=== PATIENT | female | born 1965 | race African-American/Black ===

== ENCOUNTER 2018-06-02 13:02 | Emergency (ER) | payer OTHER ==
[~2018-06-02] VITALS: Ht 162.6 cm; Wt 81.6 kg
[2018-06-02 13:16] VITALS: BP 119/69
[2018-06-02] MEDS ORDERED: TYLENOL EXTRA500 MG ORAL (13:34)
--- NOTE | 2018-06-02 13:34 | Emergency Room Report ---
History of Present Illness General Chief Complaint: Sore Throat Source: Patient Present Illness HPI 53-year-old female patient presents ER complaining of sore throat intermittently for the past month. Reports that it hurts to swallow. Reports no cough or vomiting. Reports that she was previously seen by her doctor prescribed antibiotics which briefly relieved her symptoms have not completely get rid of them. Denies other acute symptoms. Denies chest pain, shortness breath, other acute symptoms. Denies cough, fever. Allergies: Coded Allergies: MORPHINE (Verified Allergy, Unknown, 06/02/18) Patient History Past Medical History: see triage record Last Menstrual Period: NA Now: No Reviewed Nursing Documentation: PMH: Agreed; PSxH: Agreed Nursing Documentation-PMH Past Medical History: No History, Except For Review of Systems All Other Systems: negative except mentioned in HPI Physical Exam Vital Signs Date Time Temp Pulse Resp B/P (MAP) Pulse Ox O2 Delivery O2 Flow Rate FiO2 06/02/18 13:08 97.9 67 20 119/69 99 Room Air 97.9 Sp02 EP Interpretation: reviewed, normal General Appearance: well appearing, no apparent distress, alert, GCS 15, non- toxic Head: normocephalic, atraumatic Eyes: bilateral eye normal inspection, bilateral eye PERRL ENT: hearing grossly normal, normal pharynx, no angioedema, normal voice, TMs + canals normal, uvula midline, moist mucus membranes, other - uvula midline, no swelling, erythema or exudates Neck: full range of motion, thyroid normal Respiratory: lungs clear, normal breath sounds, no rhonchi, no respiratory distress, no accessory muscle use, no wheezing, speaking full sentences Cardiovascular #1: regular rate, rhythm, no edema Musculoskeletal: back normal, digits/nails normal, gait/station normal, normal range of motion, non-tender Neurologic: alert, oriented x3, responsive, motor strength/tone normal, sensory intact Psychiatric: mood/affect normal Skin: no rash Lymphatic: no adenopathy Medical Decision Making PA Attestation Dr. Crocker is my supervising Physician whom patient management has been discussed with. Diagnostic Impression: Primary Impression: Sore throat ER Course Pt presents to ED c/o sore throat. DDX considered but are not limited to pharyngitis, laryngitis, URI, peritonsillar abscess, tonsillitis. Low suspicion for peritonsillar abscess, no neck stiffness, no hot potato voice , no stridor. Does not require imaging at this time. VITAL SIGNS are WNL, patient is afebrile. ER COURSE: erythema, no tonsillar exudates, no fever, likely viral etiology of symptoms. provide patient with Viscous Lidocaine salt water gargles and follow-up with primary care provider for further treatment and referral as needed. Patient reports feeling better following administration of medication DISCHARGE: Rx provided for Tylenol for pain and fever symptoms At this time pt is stable for d/c to home. Patient is resting comfortably, in no acute distress, nontoxic appearing, talking without difficulty. Will provide with patient care instructions and any necessary prescriptions. Patient to take medication as instructed. Care plan and follow-up instructions provided. Patient questions asked and answered. Patient instructed to follow-up with primary care provider in 3 - 5 days. ER precautions given. Patient instructed to return to ER immediately for any new or worsening of symptoms including but not limited to intractable vomiting, difficulty breathing, inability to eat. - Please note that this Emergency Department Report was dictated using [employer] man technology software, occasionally this can lead to erroneous entry secondary to interpretation by the dictation equipment. Last Vital Signs Date Time Temp Pulse Resp B/P (MAP) Pulse Ox O2 Delivery O2 Flow Rate FiO2 06/02/18 13:16 97.9 20 119/69 99 Room Air 97.9 06/02/18 13:08 67 Disposition: HOME, SELF-CARE Condition: Stable Scripts Acetaminophen* (TYLENOL EXTRA STRENGTH*) 500 Mg Tablet 500 MG ORAL Q8H PRN for Prn Headache/Temp > 101, #30 TAB 0 Refills Prov: Lemuel Tucker 06/02/18 Patient Instructions: Sore Throat Additional Instructions: Followup with primary care provider in 3 -5 days. Salt water gargles Rx provided for Tylenol for pain and fever symptoms Drink plenty of water. Take medications as directed. Patient questions asked and answered. ER precautions given, patient instructed to return to ER immediately for any new or worsening of symptoms including but not limited to intractable vomiting, difficulty breathing, inability to eat. Lemuel Tucker Jun 02, 2018 13:34
[2018-06-02] MEDS ORDERED: Lidocaine 2% Visc 15ml soln ORAL ONE (13:45)
[2018-06-02 14:00] VITALS: BP 119/69
== END 2018-06-02 14:02 | disposition home or self-care (01) ==
LOC: EMR 13:34
DX: R07.0 Pain in throat (principal); Z88.6 Allergy status to analgesic agent
CPT/HCPCS: 99283